=== PATIENT | female | born 1955 ===

== ENCOUNTER 2017-07-02 16:27 | Emergency (ER) | payer MEDICAID ==
[2017-07-02 16:32] VITALS: BP 146/74; PULSE 80; RESP 16; TEMP 98.3; O2SAT 100
--- NOTE | 2017-07-02 16:49 | ED PDOC ---
Lower Extremity Pain/Injury Time Seen by Provider: 07/02/17 16:44 Chief Complaint (Nursing): Lower Extremity Problem/Injury Chief Complaint (Provider): Ankle Sprain History Per: Patient History/Exam Limitations: no limitations Onset/Duration Of Symptoms: Hrs (since this morning) Current Symptoms Are (Timing): Still Present Additional History Per: Patient, Family Additional Complaint(s): 61 year old female presents to ED with complaints of right ankle/foot pain status post misstep on stairs this morning. Patient notes she missed a couple of steps and sustained impact on her right ankle. Denies all other injuries. Confirms she is able to bear weight on right foot and notes taking 2 Tylenol GOLD LETTERER. PCP: Garcia Julian - Ankle/Foot Description Of Injury: Fell, Other (slipped on stairs) Alleviating Factor(s): Ice Therapy, OTC Pain Medication Past Medical History Reviewed: Historical Data, Nursing Documentation, Vital Signs Vital Signs: Last Vital Signs Temp 98.3 F 07/02/17 16:30 Pulse 80 07/02/17 16:30 Resp 16 07/02/17 16:30 BP 146/74 07/02/17 16:30 Pulse Ox 100 07/02/17 16:30 - Medical History PMH: No Chronic Diseases - Surgical History Surgical History: No Surg Hx - Family History Family History: States: No Known Family Hx - Living Arrangements Living Arrangements: With Family - Social History Drugs: Denies - Allergies Allergies/Adverse Reactions: Allergies Allergy/AdvReac Type Severity Reaction Status Date / Time No Known Allergies Allergy Verified 07/02/17 16:30 Wells Criteria for PE - Wells Criteria for Pulmonary Embolism P.E is #1 Diagnosis, or Equally Likely: No Heart Rate >100: No Immobilization at least 3 days;Surgery previous 4 weeks: No Previous, objectively diagnosed PE or DVT: No Hemoptysis: No Malignancy w/treatment within 6 months, or palliative: No Total Score: 0 Review of Systems ROS Statement: Except As Marked, All Systems Reviewed And Found Negative Musculoskeletal: Positive for: Foot Pain (right ankle/foot pain) Physical Exam - Reviewed Nursing Documentation Reviewed: Yes Vital Signs Reviewed: Yes - Physical Exam Appears: Positive for: Non-toxic, No Acute Distress Respiratory: Negative for: Respiratory Distress Pulses-Dorsalis Pedis (L): 2+ Pulses-Dorsalis Pedis (R): 2+ Pulses-Post. Tibialis (L): 2+ Pulses-Post. Tibialis (R): 2+ Extremity: Positive for: Normal ROM ((+) active and passive ROM to right foot), Tenderness (TTP at 5th right metatarsal and anterior lateral malleolus. (-) TTP to the posterior lateral/medial malleoli, navicular, or distal tibia), Other ((+ ) strength +5; (-) Diez test). Negative for: Deformity Neurologic/Psych: Positive for: Alert, Oriented - ECG O2 Sat by Pulse Oximetry: 100 (RA) Pulse Ox Interpretation: Normal Medical Decision Making Medical Decision Makin Initial impression: sprained ankle, sprained ATF ligament Initial plan: * XR ANKLE RIGHT * XR FOOT RIGHT 1710 XRs show no fracture, no dislocation. Mortise intact. Scribe Attestation: Documented by Cordelia Reardon, acting as a scribe for Jason Weller PA-C. Provider Scribe Attestation: All medical record entries made by the Scribe were at my direction and personally dictated by me. I have reviewed the chart and agree that the record accurately reflects my personal performance of the history, physical exam, medical decision making, and the department course for this patient. I have also personally directed, reviewed, and agree with the discharge instructions and disposition. Yash Ankle Rules - Malleolar zone tenderness? Posterior edge or tip of medial malleolus: No Inability to bear weight both immediately and in the ED: No - Midfoot zone tenderness? Base of 5th Metatarsal: Yes Navicular: No Inability to bear weight both immediately and in the ED: No - XRAY INDICATED Is an ankle x-ray indicated based on findings?: Yes Disposition - Clinical Impression Clinical Impression: Ankle sprain, Ankle pain - Patient ED Disposition Is Patient to be Admitted: No Doctor Will See Patient In The: Office - Disposition [facility]errals[facility]] Disposition: Routine/Home Condition: GOOD Instructions: Ankle Sprain Forms: [facility] (Upper Sorbian) Print Language: INDIAN - POA Present On Arrival: None
--- NOTE | 2017-07-03 09:36 | RAD ---
PROCEDURE: Right ankle Radiographs. HISTORY: R/O FX COMPARISON: None. FINDINGS: BONES: Normal. No fracture. JOINTS: Normal. No dislocation. SOFT TISSUES: Plantar heel spur. OTHER FINDINGS: None. IMPRESSION: Plantar heel spur.
--- NOTE | 2017-07-03 09:37 | RAD ---
PROCEDURE: Right Foot Radiographs. HISTORY: R/O FX (FIFTH META) COMPARISON: None. FINDINGS: BONES: Normal. No fracture. JOINTS: Normal. SOFT TISSUES: Plantar heel spur. OTHER FINDINGS: None. IMPRESSION: Plantar heel spur.
== END 2017-07-02 18:03 | disposition home or self-care (01) ==
LOC: H.ER 16:27
DX: S93.401A Sprain of unspecified ligament of right ankle, initial encounter (principal); X50.9XXA Other and unspecified overexertion or strenuous movements or postures, initial encounter; Y92.89 Other specified places as the place of occurrence of the external cause; M77.31 Calcaneal spur, right foot